=== PATIENT | female | born 1980 | race American Indian/Alaskan Native ===

== ENCOUNTER 2018-07-04 18:32 | Outpatient (CLI) | payer MEDICAID, OTHER ==
[2018-07-04] MEDS ORDERED: LACTATED RINGERS 500 ML IV ONE (19:58)
[2018-07-04 20:01] VITALS: BP 124/83
[2018-07-04] MEDS ORDERED: BICITRA ONE (20:10)
[2018-07-04] MEDS ORDERED: BICITRA PO ONE (20:10)
--- NOTE | 2018-07-04 20:34 | Event Note ---
Date: 07/04/18 Patient reports she had been morales off and on all day since 0200. She reports that contractions stopped upon arrival to [facility]. No contractions on TOCO at this time. Abdomen palpates soft, non tender. SVE closed. No vaginal bleeding or LOF. +FM. Patient states she feels great and would like to go home. Patient will f/u in office. She understands to call with any changes or worsening s/s. Dr. Pappas aware of pt's c/o and agrees with discharge.
== END 2018-07-04 20:22 | disposition home or self-care (01) ==
LOC: TRG 18:32
PROVIDERS: ATTEND Obstetrics & Gynecology
DX: O47.03 False labor before 37 completed weeks of gestation, third trimester (principal); Z3A.33 33 weeks gestation of pregnancy
CPT/HCPCS: 59025

== ENCOUNTER 2018-08-14 09:29 | Inpatient (IN) | payer OTHER ==
--- NOTE | 2018-08-13 11:59 | History and Physical Report ---
History of Present Illness Date of examination: 08/10/18 Date of admission: 08/14/18 Chief complaint: c/s History of present illness: Pt presents for repeat c/s. She does not desire to BTL at this time. All risk, benefits and alternatives were d/w pt and questions were addressed and answered. Consents were signed and placed on the chart. EDC Confirmation: 08/21/2018 Gestational Age: 18 6/7 weeks Past History : 4 Term Births: 3 Premature Births: 0 Living Children: 3 Para: 3 Mult. Births: 0 Prev : 1 Prev. attempt? 0 Aborta: 0 Elect. Ab: 0 Spont. Ab: 0 Ectopics: 0 # 1 Delivery date: 2004 Weeks Gestation: 40 labor: no Delivery type: Anesthesia type: epidural Delivery location: [facility] [place] Sex: Male weight: 7-13 # 2 Delivery date: 2005 Weeks Gestation: 38 labor: no Delivery type: Anesthesia type: epidural Delivery location: [facility] [place] Sex: Male weight: 6-5 Comments: elective IOL # 3 Delivery date: 2007 Weeks Gestation: 38 labor: no Delivery type: Anesthesia type: spinal Delivery location: [facility] Infant Sex: Female weight: 6-8 Comments: elective IOL - arrest of dilatation Past Medical History: Reviewed history and no changes required: Negative Past Medical History Past Surgical History: Reviewed history and no changes required: C/S x 1 (2007) Past Medical History Surgery (Non-inclusion specialist): C/S x 1 (2007) Abnormal PAP: negative SABIHA Exposure: negative Infertility: negative Uterine Anomaly: negative Uterine Surgery (not C/S): negative Other Gynecologic Problems: negative Infection History Hx of STD: none HIV Risk Eval: low risk Hepatitis B Risk Eval: low risk Personal hx. of genital herpes: no Partner hx. of genital herpes: no Rash, Viral, or Febrile illness since last LMP? no Varicella/Chicken Pox Status: Previous Disease TB Risk: no Genetic History ADVANCED MATERNAL AGE Congenital Heart Defect: Mom: no Dad: no Shaquille Disease: Mom: no Dad: no Thalassemia Mom: no Dad: no Neural Tube Defect Mom: no Dad: no Down's Syndrome Mom: no Dad: no Dmitri-Sachs Mom: no Dad: no Sickle Cell Disease/Trait Mom: no Dad: no Hemophilia Mom: no Dad: no Muscular Dystrophy Mom: no Dad: no Cystic Fibrosis Mom: no Dad: no Danya Chorea Mom: no Dad: no Mental Retardation Mom: no Dad: no Fragile X Mom: no Dad: no Other Genetic/Chromosomal Disorder Mom: no Dad: no Child w/other defect Mom: no Dad: no Other: Pt reports all of FOB children had a "hole in the heart" at . This is there first child together. Enviromental Exposures Xray Exposure: no Medication, drug, or alcohol use since LMP: no Chemical/Other Exposure: no Exposure to Cat Liter: no Hx of Parvovirus (Fifth Disease): no Occupational Exposure to Children: none Active Medications (reviewed today): None Current Allergies (reviewed today): No known allergies Past History Past Medical History: hypertension Past Surgical History: section PERINATOLOGY PHYSICIAN History: other (see h&p) Family/Genetic History: other (see h&p) - Obstetrical History Expected Date of Delivery: 08/21/18 Actual Gestation: 38 Week(s) 6 Day(s) : 4 Para: 3 Hx # Term Pregnancies: 3 Number of Living Children: 3 Medications and Allergies Allergies Allergy/AdvReac Type Severity Reaction Status Date / Time No Known Allergies Allergy Verified 07/04/18 18:58 Review of Systems All systems: negative - Physical Exam Breasts: Positive: deferred Cardiovascular: Normal S1, Normal S2 Lungs: Positive: Clear to auscultation, Normal air movement Abdomen: Positive: normal appearance, soft. Negative: distention, tenderness, guarding Genitourinary (Female): Positive: other (deferrred until EUA) - Obstetrical FHR: auscultation normal Results All other labs normal. Assessment and Plan - Patient Problems (1) 39 weeks gestation of Status: Acute (2) Previous delivery affecting , antepartum Status: Acute Plan to address problem: -admit and prepare for c/s -consents signed and placed on the chart. (3) Hypertension affecting Status: Acute Plan to address problem: -no meds this as pt has been normotensive
[~2018-08-14 09:29] MED LIST: BICITRA PO ONE; PEPCID IV ONE; PITOCin/NS 20 UNIT/1000ML DRIP 20 UNITS/1,000 ML BAG IV SCH; REGLAN IV ONE
[2018-08-14] MEDS: LACTATED RINGERS 1,000 ML IV SCH ×2 (10:40→11:20)
[2018-08-14 10:57] LABS: Basophils % (Auto) 0.3 % (0.0-1.8); Eosinophils # (Auto) 0.1 K/mm3 (0.0-0.4); Hematocrit 33.9 % (30.3-42.9); Hemoglobin 11.3 gm/dl (10.1-14.3); Lymphocytes # (Auto) 1.8 K/mm3 (1.2-5.4); Lymphocytes % (Auto) 30.6 % (13.4-35.0); Mean Corpuscular HGB Conc 33 % (30-34); Mean Corpuscular Volume 80 fl (79-97); Monocytes # (Auto) 0.5 K/mm3 (0.0-0.8); Monocytes % (Auto) 8.5 % (0.0-7.3); Platelet Count 174 K/mm3 (140-440); Red Blood Count 4.23 M/mm3 (3.65-5.03); Red Cell Distribution Width 14.6 % (13.2-15.2)
[2018-08-14] MEDS ORDERED: DILAUDID IV PRN (11:35)
[2018-08-14] MEDS ORDERED: BENADRYL IV PRN (11:35)
[2018-08-14] MEDS ORDERED: NARCAN 0.4 MG/1 ML IV PRN ×2 (11:35→14:12)
[2018-08-14] MEDS ORDERED: PHENERGAN PR PRN (11:35)
[2018-08-14] MEDS ORDERED: PHENERGAN PO PRN (11:35)
[2018-08-14] MEDS ORDERED: ZOFRAN IV PRN (11:35)
[2018-08-14] MEDS ORDERED: ANCEF/STERILE WATER 2 GM/20 ML 2 GM/20 ML SYRINGE IV ONE (11:37)
--- NOTE | 2018-08-14 11:37 | Anesthesia Consultation ---
Anesthesia Consult and Med Hx - Airway Anesthetic Teeth Evaluation: Good ROM Head & Neck: Adequate Mental/Hyoid Distance: Adequate Mallampati Class: Class I Intubation Access Assessment: Good - Pulmonary Exam CTA: Yes - Cardiac Exam Cardiac Exam: RRR - Pre-Operative Health Status ASA Pre-Surgery Classification: ASA2 Proposed Anesthetic Plan: Spinal - Pulmonary Hx Asthma: No COPD: No Hx Pneumonia: No - Cardiovascular System Hx Hypertension: No - Central Nervous System Hx Seizures: No Hx Psychiatric Problems: No - Endocrine Hx Renal Disease: No Hx End Stage Renal Disease: No Hx Hypothyroidism: No Hx Hyperthyroidism: No - Hematic Hx Anemia: No Hx Sickle Cell Disease: No - Other Systems Hx Alcohol Use: No
--- NOTE | 2018-08-14 11:37 | Anesthesia Day of Surgery ---
Anesthesia Day of Surgery - Day of Surgery Patient Examined: Yes Patient H&P Reviewed: Yes Patient is NPO: Yes Beta Blockers: No Cardiac Clearance: No Pulmonary Clearance: No Joey's Test: N/A
[2018-08-14] MEDS ORDERED: SODIUM CHLORIDE FLUSH SYRINGE 10 ML IV NR (12:00)
[2018-08-14] MEDS ORDERED: REGLAN IV ONE (12:00)
[2018-08-14] MEDS ORDERED: BICITRA PO ONE (12:00)
[2018-08-14] MEDS ORDERED: PEPCID IV ONE (12:00)
[2018-08-14] MEDS ORDERED: WATER FOR IRRIG STERILE IR ONE (13:02)
[2018-08-14] MEDS ORDERED: NACL 0.9% IR ONE (13:02)
[2018-08-14] MEDS ORDERED: SUBLIMAZE ONE (13:06)
[2018-08-14] MEDS ORDERED: ZOFRAN ONE (13:06)
[2018-08-14] MEDS ORDERED: NEO SYNEPHRINE/NS Syringe(OR USE) IV ONE (13:23)
[2018-08-14] MEDS ORDERED: TORADOL ONE (13:39)
--- NOTE | 2018-08-14 14:11 | Operative Report ---
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 Snyder Talent Rep: KENDRICK Anesthesia: Epidural EBL: 400 mL Urine output: 100 mL of clear urine out at end of procedure Fluids: 1600 mL Findings: Liveborn male infant 6 lbs. 10 oz. 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 All risks benefits and alternatives were discussed with the patient. Consents were signed and placed on the chart. Procedure: Patient was taking to the operating room. Patient was then prepped and draped in sterile fashion after anesthesia was found to be adequate. A low transverse skin incision was made with the scalpel through previous incisional scar and carried down to the underlying layer of fascia with the Bovie. The fascia was then incised in the midline and this incision was extended bilaterally with the Bovie. The superior aspect of the fascia was grasped with James clamps tented upward and dissected off of the anterior rectus muscles with the scalpel. In similar fashion the inferior aspect of the fascia was grasped with James clamps tented upward and dissected off of the anterior rectus muscles. The rectus muscles were then bluntly divided in the midline. The peritoneum was identified and entered into sharply. The Jose retractor was placed. The bladder blade was placed. The bladder flap was created using the Metzenbaum scissors. The bladder blade was replaced. A lower transverse uterine incision was made with the scalpel and extended bilaterally with the bandage scissors. Artificial rupture of membranes was performed yielding clear amniotic fluid. The Kiwi vacuum was applied 1 with minimal traction and no pop off. The 's head was then delivered atraumatically. Nuchal cord 1 was noted and easily reduced. The anterior shoulder and rest of infant delivered without difficulty. The umbilical cord was clamped x2. The cord was cut. The infant was then placed in sterile bassinet. The placenta was manually extracted in its entirety. The uterus was exteriorized and cleared of all clots and debris. The uterine incision was closed using 0 Vicryl in a running locking fashion. A second imbricating layer of the same suture was then created. The posterior cul-de-sac was copiously irrigated. The uterus was returned to the abdomen. The gutters were also irrigated. Jose retractor was removed. Interceed was placed over the uterine incision with excellent hemostasis noted. The anterior rectus muscles were reapproximated using 3-0 Vicryl. The anterior rectus fascia was reapproximated using 0 Vicryl in a running fashion. The subcuticular fat was reapproximated using 2-0 Vicryl in a running fashion. The skin was reapproximated with 4-0 Monocryl in a subcuticular stitch. The patient tolerated the procedure well. Sponge lap and needle counts were all correct x3. Patient was taken to the recovery room awake and in stable condition.
[2018-08-14] MEDS ORDERED: TUCKS PAD TP PRN (14:12)
[2018-08-14] MEDS ORDERED: TYLENOL PO PRN ×2 (14:12→14:47)
[2018-08-14] MEDS ORDERED: MYLICON PO PRN (14:12)
[2018-08-14] MEDS ORDERED: LANSINOH TP PRN (14:12)
[2018-08-14] MEDS ORDERED: BENADRYL ONE (14:19)
--- NOTE | 2018-08-14 14:34 | Post Anesthesia Evaluation ---
- Post Anesthesia Evaluation Patient Participated: Yes Airway Patent: Yes Stable Respiratory Function: Yes Nausea/Vomiting: No Temp > 96.8F: Yes Pain Manageable: Yes Adequeate Hydration: Yes Anesthesia Complications: No Block Receding Appropriately: Yes Patient on Ventilator: No
[2018-08-14] MEDS: D5LR 1,000 ML IV SCH (17:31)
[2018-08-14] MEDS: TORADOL IV PRN (17:32)
[2018-08-14] MEDS: ANCEF/NS 1 GM/50 ML 1 GM/50 ML BAG IV SCH (19:50)
[2018-08-15] MEDS: TORADOL IV PRN ×2 (01:05→05:55)
[2018-08-15] MEDS: D5LR 1,000 ML IV SCH (01:07)
[2018-08-15 01:46] LABS: Hematocrit 30.8 % (30.3-42.9); Hemoglobin 10.2 gm/dl (10.1-14.3)
[2018-08-15] MEDS: ANCEF/NS 1 GM/50 ML 1 GM/50 ML BAG IV SCH (03:58)
[2018-08-15] MEDS ORDERED: BOOSTRIX IM ONE (06:00)
[2018-08-15] MEDS: PERCOCET 5/325 PO PRN ×3 (08:57→19:54)
--- NOTE | 2018-08-15 09:20 | Progress Note ---
Assessment and Plan POD 1. Patient reports feeling well, denies any complaints or concerns at this time. Fundus is firm, ML, U/1. Vaginal bleeding is minimal, patient denies any heavy bleeding or blood clots. Dressing remains in place over abdominal incision, C/D/I. Instructed patient to shower today and remove dressing after shower. Hygiene care for incision site discussed with patient. Patient reports pain is well controlled with medications. She denies feeling dizzy or lightheaded with ambulation or position changes. VSSAF. Encouraged pt to continue frequent ambulation, use of IS, and PO water hydration. She reports bottle feeding, denies any breast complaints, reports infant is doing well. Continue post-op pathway at this time. Subjective - Subjective Date of service: 08/15/18 Principal diagnosis: POD 1 s/p repeat c/s Patient reports: appetite normal, voiding normally, pain well controlled, ambulating normally : doing well Objective - Vital Signs Latest vital signs: Vital Signs Temp Pulse Resp BP BP Pulse Ox 08/15/18 08:45 98 F 93 H 20 129/83 08/15/18 05:55 18 08/15/18 05:22 98.2 F 98 H 20 129/88 99 08/15/18 01:05 20 08/15/18 00:58 98.6 F 91 H 18 123/79 97 08/14/18 20:35 20 08/14/18 19:54 99.1 F 72 20 126/89 08/14/18 15:50 97.5 F L 67 18 128/86 08/14/18 15:05 73 10 L 128/86 100 08/14/18 14:50 74 12 113/76 96 08/14/18 14:35 72 13 129/79 100 08/14/18 14:30 12 117/71 100 08/14/18 14:25 97.7 F 76 16 122/77 100 08/14/18 11:48 91 H 133/80 08/14/18 10:26 99.0 F 90 18 08/14/18 10:01 90 126/85 Intake and Output 08/14/18 08/15/18 08/15/18 23:59 07:59 15:59 Intake Total 50 1430 360 Output Total 1000 1700 900 Balance -950 -270 -540 Intake: IV 50 950 ANCEF/NS 1 GM/50 ML 1 gm 50 In 50 ml @ 100 mls/hr IV Q8H WERNER Rx#:[id number] D5lr 1,000 ml @ 125 mls/ 950 hr IV [facility] Rx#: [id number] Oral 480 360 Output: Urine 1000 1700 900 Indwelling Catheter 1000 700 Void 1000 900 Other: Total, Intake Amount 360 360 Total, Output Amount 1000 500 900 # Voids Void 1 3 - Exam Breasts: Present: normal Cardiovascular: Present: Regular rate, Normal S1, Normal S2 Lungs: Present: Clear to auscultation, Normal air movement Abdomen: Present: normal appearance, soft, normal bowel sounds Vulva: both: normal Uterus: Present: normal, firm, fundal height below umbilicus Extremities: Present: normal Incision: Present: dressed (C/D/I) - Labs Labs: Abnormal lab results 08/13/18 Range/Units 10:00 MCH 27 L (28-32) pg Mckean % (Auto) 8.5 H (0.0-7.3) %
[2018-08-15] MEDS: IBUPROFEN PO PRN (19:55)
[2018-08-16] MEDS: PERCOCET 5/325 PO PRN ×3 (02:58→13:35)
[2018-08-16] MEDS ORDERED: DEPO-PROVERA (CONTRACEPTION) IM ONE ×2 (06:17→17:55)
--- NOTE | 2018-08-16 06:17 | Discharge Summary ---
Providers - Providers Date of Admission: 08/14/18 09:29 Date of discharge: 08/16/18 (pt desires d/c) Attending physician: YARED CANALES Primary care physician: YARED CANALES Hospitalization Reason for admission: section Delivery: Procedure: repeat low transverse Episiotomy: none Laceration: none Incision: normal, dry, intact Other procedures: none complications: none Discharge diagnosis: IUP at term delivered [place] baby: male Hospital course: uncomplicated repeat section Pt resting No c/o voiced VSS FF below umb Lochia scant Incision D&I H&H stable No s/sx of anemia. Doing well s/p section. P: d/c today with instructions RTO 1 week postop and circ. RX provided Condition at discharge: Good Disposition: DC-01 TO HOME OR SELFCARE - Discharge Diagnoses (1) delivery delivered Status: Acute Comment: RTO 1 week postop care Plan - Discharge Medications Prescriptions: Lidocain2.5%/Prilocai2.5% [Emla] 0 gm TP ONCE #1 tube Ibuprofen [Motrin 800 MG tab] 800 mg PO Q8HR PRN #30 tablet PRN Reason: Pain, Moderate (4-6) oxyCODONE /ACETAMINOPHEN [Percocet 5/325] 1 tab PO Q4HR #30 tab - Provider Discharge Summary Activity: routine, no sex for 6 weeks, no heavy lifting 4 weeks, no strenuous exercise Diet: routine Instructions: routine Additional instructions: [] Smoking cessation referral if applicable(refer to patient education folder for contact #) [] Refer to [facility] Booklet Call your doctor immediately for: * Fever > 100.5 * Heavy vaginal bleeding ( >1 pad per hour) * Severe persistent headache * Shortness of breath * Reddened, hot, painful area to leg or breast * Drainage or odor from incision. * Keep incision clean and dry at all times and follow doctor's instructions regarding bathing/showering - Follow up plan Follow up: YARED CANALES MD [Primary Care Provider] - 08/22/18 (Congratulations! Please call [phone] to schedule your postoperative vist and your son's circumcision in 1 week. Bring the EMLA cream with you to his visit. Do NOT use at home. Take medications as prescribed. Call with any concerns.)
[2018-08-16] MEDS ORDERED: BENADRYL PO NR (18:00)
[2018-08-16] MEDS: IBUPROFEN PO PRN (21:34)
[2018-08-16 21:45] VITALS: BP 136/87
== END 2018-08-16 23:30 | disposition home or self-care (01) | DRG 765 ==
LOC: APU 09:29 → OB 16:14
PROVIDERS: ADMIT Obstetrics & Gynecology; ATTEND Obstetrics & Gynecology
PROC: 10D00Z1 Extraction of Products of Conception, Low, Open Approach (ICD-10-PCS; principal; 2018-08-14)
PROC: 3E0234Z Introduction of Serum, Toxoid and Vaccine into Muscle, Percutaneous Approach (ICD-10-PCS; 2018-08-15)
DX: O34.211 Maternal care for low transverse scar from previous cesarean delivery (principal); O10.02 Pre-existing essential hypertension complicating childbirth; O69.81X0 Labor and delivery complicated by cord around neck, without compression, not applicable or unspecified; Z37.0 Single live birth; Z23 Encounter for immunization; Z3A.38 38 weeks gestation of pregnancy
CPT/HCPCS: 36415; 59025; 85014; 85018; 85025; 86850; 86900; 86901; 96360; 96374; G0378; C1765; J0690; J1050; J1170; J1200; J1885; J2370; J2405; J2590; J2765; J3010; J7120; J7121